=== PATIENT | female | born 1990 | race African-American/Black ===

== ENCOUNTER 2017-04-13 13:56 | Emergency (ER) | payer OTHER ==
[~2017-04-13] VITALS: Ht 165.1 cm; Wt 50.0 kg
[~2017-04-13 13:56] MED LIST: CEPHALEXIN500 M1 OR; CIPRO500 MG OR; NAPROSYN500 MG OR; NO HOME MEDS; ROBITUSSIN AC10 ML OR
[2017-04-13 14:45] LABS: HEMATOCRIT 34.4 % (37.0-47.0); HEMOGLOBIN 12.2 g/dl (12.0-16.0); IMMATURE GRANULOCYTES 0.3 % (0.0-1.0); MEAN CELL VOLUME 79.8 fL CALC (80.0-100.0); MEAN CORPUSCULAR HGB 28.3 pG CALC (26.0-32.0); MEAN CORPUSCULAR HGB CONC 35.5 g/L CALC (32.0-36.0); NEUT# 5.48 thou/uL (2.00-7.15); RED BLOOD COUNT 4.31 mill/uL (4.20-5.60); RED CELL DISTRI WIDTH 12.4 % (11.5-15.5)
[2017-04-13 14:59] LABS: ALBUMIN 4.4 g/dL (3.2-5.0); ALKALINE PHOSPHATASE 51 u/l (38-126); ANION GAP 15 (6-22 (CALC)); BILIRUBIN, TOTAL 0.6 mg/dL (0.0-1.4); BUN 6 mg/dL (7-17); BUN/CREATININE RATIO 11 (12-20 (CALC)); CALCIUM 9.8 mg/dL (8.4-10.2); CARBON DIOXIDE 22 mmol/l (22-30); CHLORIDE 103 mmol/l (95-108); CREATININE 0.6 mg/dL (0.5-1.0); GFR > 60 ML/MIN (>=60 (CALC)); GFR FOR AFR.AMER. > 60 ML/MIN (>=60 (CALC)); GLUCOSE 79 mg/dL (65-105); POTASSIUM 3.7 mmol/l (3.5-5.1); SGOT/AST 25 u/l (14-36); SGPT/ALT 29 u/l (9-52); SODIUM 136 mmol/l (137-146); TOTAL PROTEIN 7.7 g/dL (6.3-8.2)
[2017-04-13] MEDS ORDERED: PRENATAL MULTI1 CAP PO (15:32)
[2017-04-13 15:45] VITALS: BP 108/65
== END 2017-04-13 15:45 | disposition home or self-care (01) | DRG 781 ==
LOC: ED 13:56
PROVIDERS: Emergency Medicine
DX: O26.891 Other specified pregnancy related conditions, first trimester (principal); R51 Headache; Z3A.12 12 weeks gestation of pregnancy; R10.9 Unspecified abdominal pain; Y04.0XXA Assault by unarmed brawl or fight, initial encounter; Y92.009 Unspecified place in unspecified non-institutional (private) residence as the place of occurrence of the external cause

== ENCOUNTER 2017-04-15 14:08 | Emergency (ER) | payer OTHER ==
[~2017-04-15] VITALS: Ht 165.1 cm; Wt 60.0 kg
[~2017-04-15 14:08] MED LIST changes: +PRENATAL MULTI1 CAP PO
[2017-04-15 15:16] LABS: HEMATOCRIT 36.4 % (37.0-47.0); HEMOGLOBIN 12.7 g/dl (12.0-16.0); IMMATURE GRANULOCYTES 0.4 % (0.0-1.0); MEAN CELL VOLUME 81.6 fL CALC (80.0-100.0); MEAN CORPUSCULAR HGB 28.5 pG CALC (26.0-32.0); MEAN CORPUSCULAR HGB CONC 34.9 g/L CALC (32.0-36.0); NEUT# 6.37 thou/uL (2.00-7.15); RED BLOOD COUNT 4.46 mill/uL (4.20-5.60); RED CELL DISTRI WIDTH 12.7 % (11.5-15.5)
[2017-04-15 15:28] LABS: ALBUMIN 4.6 g/dL (3.2-5.0); ALKALINE PHOSPHATASE 53 u/l (38-126); ANION GAP 16 (6-22 (CALC)); BILIRUBIN, TOTAL 0.7 mg/dL (0.0-1.4); BUN 4 mg/dL (7-17); BUN/CREATININE RATIO 9 (12-20 (CALC)); CALCIUM 9.4 mg/dL (8.4-10.2); CARBON DIOXIDE 22 mmol/l (22-30); CHLORIDE 101 mmol/l (95-108); CREATININE 0.5 mg/dL (0.5-1.0); GFR > 60 ML/MIN (>=60 (CALC)); GFR FOR AFR.AMER. > 60 ML/MIN (>=60 (CALC)); GLUCOSE 79 mg/dL (65-105); POTASSIUM 3.2 mmol/l (3.5-5.1); SGOT/AST 26 u/l (14-36); SGPT/ALT 30 u/l (9-52); SODIUM 136 mmol/l (137-146)
[2017-04-15 16:52] LABS: URINE BILIRUBIN - DIPSTICK NEGATIVE (NEGATIVE); URINE BLOOD DIPSTICK SMALL (NEGATIVE); URINE CLARITY CLEAR; URINE COLOR YELLOW; URINE GLUCOSE - DIPSTICK NEGATIVE (NEGATIVE); URINE KETONE >=80 mg/dL (NEGATIVE); URINE LEUK ESTERASE NEGATIVE (NEGATIVE); URINE NITRITE - DIPSTICK NEGATIVE (Negative); URINE PROTEIN - DIPSTICK NEGATIVE (NEG-TRACE); URINE UROBILINOGEN - DIPSTICK 0.2 E.U./dL (0.2)
[2017-04-15 16:58] LABS: BARBITURATES NEGATIVE (NEGATIVE); COCAINE NEGATIVE (NEGATIVE); METHADONE NEGATIVE (NEGATIVE); OXCYCODONE NEGATIVE (NEGATIVE); TETRAHYDROCANNABIONOL POSITIVE (NEGATIVE); TRICYLIC ANTIDEPRESSANTS NEGATIVE (NEGATIVE)
[2017-04-15 17:00] VITALS: BP 104/66
[2017-04-15 17:01] LABS: URINE SQUAMOUS EPITHELIAL CELL FEW EPI/hpf (0-FEW)
== END 2017-04-15 17:45 | disposition home or self-care (01) | DRG 781 ==
LOC: ED 14:08
PROVIDERS: Emergency Medicine
DX: O26.891 Other specified pregnancy related conditions, first trimester (principal); R20.0 Anesthesia of skin; S39.012A Strain of muscle, fascia and tendon of lower back, initial encounter; Z3A.08 8 weeks gestation of pregnancy

== ENCOUNTER 2017-06-26 15:41 | Emergency (ER) | payer OTHER ==
[~2017-06-26] VITALS: Ht 165.1 cm; Wt 54.0 kg
[2017-06-26] MEDS ORDERED: PRE-NATAL PO (16:00)
[2017-06-26 16:45] VITALS: BP 111/60
== END 2017-06-26 16:45 | disposition home or self-care (01) | DRG 781 ==
LOC: ED 15:41
DX: O99.352 Diseases of the nervous system complicating pregnancy, second trimester (principal); G43.909 Migraine, unspecified, not intractable, without status migrainosus; O99.512 Diseases of the respiratory system complicating pregnancy, second trimester; J45.909 Unspecified asthma, uncomplicated; Z3A.18 18 weeks gestation of pregnancy

== ENCOUNTER 2017-10-10 10:43 | Emergency (ER) | payer OTHER ==
[~2017-10-10] VITALS: Ht 165.1 cm; Wt 71.0 kg
[~2017-10-10 10:43] MED LIST changes: +PRE-NATAL PO
[2017-10-10] MEDS ORDERED: METRONIDAZOL500 MG PO (11:33)
[2017-10-10 12:21] VITALS: BP 101/61
== END 2017-10-10 12:19 | disposition home or self-care (01) | DRG 781 ==
LOC: ED 10:43
DX: O26.893 Other specified pregnancy related conditions, third trimester (principal); Z20.2 Contact with and (suspected) exposure to infections with a predominantly sexual mode of transmission; Z3A.33 33 weeks gestation of pregnancy

== ENCOUNTER 2018-03-30 04:27 | Emergency (ER) | payer OTHER ==
[~2018-03-30] VITALS: Ht 165.1 cm; Wt 54.0 kg
[~2018-03-30 04:27] MED LIST changes: +METRONIDAZOL500 MG PO
[2018-03-30 05:11] LABS: BARBITURATES NEGATIVE (NEGATIVE); COCAINE NEGATIVE (NEGATIVE); METHADONE NEGATIVE (NEGATIVE); OXCYCODONE NEGATIVE (NEGATIVE); TETRAHYDROCANNABIONOL POSITIVE (NEGATIVE); TRICYLIC ANTIDEPRESSANTS NEGATIVE (NEGATIVE)
[2018-03-30 06:53] VITALS: BP 107/70
== END 2018-03-30 06:53 | disposition home or self-care (01) ==
LOC: ED 04:27
PROVIDERS: Emergency Medicine
DX: R51 Headache (principal)

== ENCOUNTER 2018-04-09 06:41 | Emergency (ER) | payer OTHER ==
[~2018-04-09] VITALS: Ht 165.1 cm; Wt 68.0 kg
[2018-04-09 07:41] LABS: INFLUENZA A NONE DETECTED (NONE DETECT); INFLUENZA B NONE DETECTED (NONE DETECT)
[2018-04-09] MEDS ORDERED: TESSALON PERLE100 MG PO (07:48)
[2018-04-09] MEDS ORDERED: CEPHALEXIN500 M1 PO (07:48)
[2018-04-09 07:58] VITALS: BP 101/60
== END 2018-04-09 08:10 | disposition home or self-care (01) ==
LOC: ED 06:41
PROVIDERS: Emergency Medicine
DX: J06.9 Acute upper respiratory infection, unspecified (principal); R05 Cough; R50.9 Fever, unspecified; R52 Pain, unspecified

== ENCOUNTER 2018-12-28 21:18 | Emergency (ER) | payer OTHER ==
[~2018-12-28] VITALS: Ht 165.1 cm; Wt 58.6 kg
[~2018-12-28 21:18] MED LIST changes: +CEPHALEXIN500 M1 PO; +TESSALON PERLE100 MG PO
[2018-12-28 21:53] LABS: URINE BILIRUBIN - DIPSTICK NEGATIVE (NEGATIVE); URINE BLOOD DIPSTICK LARGE (NEGATIVE); URINE COLOR YELLOW; URINE GLUCOSE - DIPSTICK NEGATIVE (NEGATIVE); URINE KETONE NEGATIVE (NEGATIVE); URINE NITRITE - DIPSTICK NEGATIVE (Negative); URINE PROTEIN - DIPSTICK NEGATIVE (NEG-TRACE); URINE SPECIFIC GRAVITY 1.025; URINE UROBILINOGEN - DIPSTICK 0.2 E.U./dL (0.2)
[2018-12-28 21:56] LABS: URINE LEUK ESTERASE SMALL (NEGATIVE)
[2018-12-28 22:02] LABS: URINE SQUAMOUS EPITHELIAL CELL MODERATE EPI/hpf (0-FEW)
[2018-12-28] MEDS ORDERED: BACTRIM DS1 TAB PO (22:34)
[2018-12-28 22:42] VITALS: BP 102/62
== END 2018-12-28 22:42 | disposition home or self-care (01) ==
LOC: ED 21:18
PROVIDERS: Emergency Medicine
DX: N39.0 Urinary tract infection, site not specified (principal); R10.30 Lower abdominal pain, unspecified

== ENCOUNTER 2019-06-09 09:00 | Emergency (ER) | payer OTHER ==
[~2019-06-09] VITALS: Ht 165.1 cm; Wt 57.0 kg
[~2019-06-09 09:00] MED LIST changes: +BACTRIM DS1 TAB PO
[2019-06-09] MEDS ORDERED: AMOXICILLIN875 MG PO (12:05)
[2019-06-09 12:09] VITALS: BP 110/70
== END 2019-06-09 12:13 | disposition home or self-care (01) ==
LOC: ED 09:00
DX: J02.0 Streptococcal pharyngitis (principal); D57.1 Sickle-cell disease without crisis

== ENCOUNTER 2019-08-09 17:17 | Emergency (ER) | payer OTHER ==
[~2019-08-09] VITALS: Ht 165.1 cm; Wt 55.6 kg
[~2019-08-09 17:17] MED LIST changes: +AMOXICILLIN875 MG PO
[2019-08-09] MEDS ORDERED: NAPROXEN500 MG PO (18:24)
[2019-08-09 19:26] VITALS: BP 106/67
[2019-08-09] MEDS ORDERED: no home med (19:28)
== END 2019-08-09 19:26 | disposition home or self-care (01) ==
LOC: ED 17:17
DX: N94.6 Dysmenorrhea, unspecified (principal); D57.1 Sickle-cell disease without crisis; F17.290 Nicotine dependence, other tobacco product, uncomplicated

== ENCOUNTER 2019-11-05 08:09 | Emergency (ER) | payer OTHER ==
[~2019-11-05 08:09] MED LIST changes: +NAPROXEN500 MG PO; +no home med
[2019-11-05] MEDS ORDERED: AMOX/K CLAV875 M1 PO (08:38)
[2019-11-05 08:49] VITALS: BP 113/65
== END 2019-11-05 08:55 | disposition home or self-care (01) ==
LOC: ED 08:09
DX: J32.0 Chronic maxillary sinusitis (principal); F17.200 Nicotine dependence, unspecified, uncomplicated